=== PATIENT | female | born 1965 | race Caucasian/White ===

== ENCOUNTER 2017-12-15 14:21 | Emergency (ER) | payer BC, OTHER ==
[~2017-12-15] VITALS: Ht 157.5 cm; Wt 72.9 kg
[2017-12-15 14:40] VITALS: TEMP 36.8
[2017-12-15 14:45] VITALS: O2SAT 98
[2017-12-15] MEDS ORDERED: OPTIRAY 320 IV PRN (15:00)
[2017-12-15 15:05] VITALS: Ht 157.5 cm; Wt 72.9 kg
--- NOTE | 2017-12-15 15:07 | EMERGENCY ROOM VISIT NOTE ---
History Report prepared by Lakeisha: Neva Smyht Under the Supervision of: Amirah DeanO. First contact with patient: 14:32 Chief Complaint: HEADACHE Stated Complaint: HEADACHE/HYPERTENSION History of Present Illness The patient is a 52 year old female who presents to the Emergency Room with complaints of a resolved visual change which occurred earlier today. She reports that this morning when she woke up, she was unable to see out of her left eye for about 1 minute. The patient states a history of migraines, noting that she has had one for the past 3 weeks. She notes that she has been taking Tylenol, which helps reduce her symptoms but does not make them go away completely. The patient denies having numbness or weakness in her arms or legs, fevers, chills, problems moving her face, or any other symptoms. She reports that she has been taking medication for menopause, noting that her last normal menstrual period was about one month ago. The patient states a history of endometriosis and cervical cancer. Source of History: patient Onset: today Position: eye (left) Quality: other (visual change) Timing: resolved Associated Symptoms: + headache, No fevers, No chills, No weakness, No numbness Note: Patient denies problems moving her face. Review of Systems See HPI for pertinent positives & negatives. A total of 10 systems reviewed and were otherwise negative. Past Medical & Surgical Surgical Problems: (1) Cervical cancer (2) Endometriosis Family History Patient reports no known family medical history. Patient did not report any pertinent family history. Social History Smoking Status: Current Some Day Smoker Smokeless Tobacco Use: No Alcohol Use: occasionally Drug Use: none Housing Status: lives with family Current/Historical Medications Scheduled Amlodipine Besylate (Norvasc), 1 TAB PO DAILY Black Cohosh-Soy Isoflavones-M (Estroven Multi-Symptom Me), 1 CAP PO DAILY Allergies Coded Allergies: No Known Allergies (Unverified , 12/15/17) Physical Exam Vital Signs Date Time Temp Pulse Resp B/P (MAP) Pulse Ox O2 Delivery O2 Flow Rate FiO2 12/15/17 18:51 69 18 167/94 98 12/15/17 18:34 75 12/15/17 18:32 77 16 167/94 96 Room Air 12/15/17 17:41 69 15 165/94 98 Room Air 12/15/17 16:51 73 18 186/103 97 Room Air 12/15/17 16:09 77 20 193/100 97 Room Air 12/15/17 15:05 74 22 181/96 97 Room Air 12/15/17 14:45 98 Room Air 12/15/17 14:45 98 Room Air 12/15/17 14:40 36.8 72 22 204/97 97 Room Air 12/15/17 14:34 69 Physical Exam GENERAL: Patient is awake, alert, and in no acute distress. Patient is resting comfortably and showing no signs of anxiety EYES: The conjunctivae are clear. The pupils are round and reactive. EARS, NOSE, MOUTH AND THROAT: The nose is without any evidence of any deformity. Mucous membranes are moist tongue is midline NECK: The neck is nontender and supple. RESPIRATORY: Normal respiratory effort is noted there is no evidence of wheezing rhonchi or rales CARDIOVASCULAR: Regular rate and rhythm noted there no murmurs rubs or gallops normal S1 normal S2 GASTROINTESTINAL: The abdomen is soft. Bowel sounds are present in all quadrants. Abdomen is nontender PELVIS: The Pelvis is stable. No tenderness to palpation is noted. BACK: No midline tenderness or or step-off noted range of motion in flexion extension as well as rotation no signs of muscle spasm noted MUSCULOSKELETAL/EXTREMITIES: There is no evidence of gross deformity full range of motion is noted in the hips and shoulders SKIN: There is no obvious evidence of any rash. There are no petechiae, pallor or cyanosis noted. NEUROLOGIC: Patient is awake alert and oriented x3 strength is symmetric patellar reflexes are 2+ bilaterally Medical Decision & Procedures ER Provider Diagnostic Interpretation: Radiology results as stated below per my review and radiologist interpretation: ANGIOGRAPHY HEAD COMBO HISTORY: Vision loss. Headache TECHNIQUE: Multiaxial CT images of the head were performed both before and after the intravenous administration of contrast to evaluate the major cerebral vessels. Maximum intensity projection images were also obtained. A dose lowering technique was utilized adhering to the principles of ALARA. COMPARISON: None. FINDINGS: There is no mass, hematoma, midline shift, or acute infarct. Visualized intracranial internal carotid arteries, distal vertebral arteries, and basilar artery are widely patent. There is no significant stenosis, occlusion, or aneurysm seen within the bilateral ACAs, MCAs, or carbon brushes assembler. IMPRESSION: No significant stenosis, occlusion, or aneurysm within the [place] [facility] [place]. Negative CT of the brain The above report was generated using voice recognition software. It may contain grammatical, syntax or spelling errors. Electronically signed by: Guy López M.D. 12/15/2017 4:11 PM Dictated Date/Time: 12/15/2017 4:09 PM CHEST ONE VIEW PORTABLE CLINICAL HISTORY: 52 years-old Female presenting with EVALUATE ALTERED MENTAL STATUS/WEAKNESS. TECHNIQUE: Portable upright AP view of the chest was obtained. COMPARISON: None. FINDINGS: Cardiac silhouette is top normal in size. No focal opacity. No large effusion or pneumothorax. Osseous structures normal. Upper abdomen normal. IMPRESSION: 1. No acute cardiopulmonary disease. Electronically signed by: Narinder Reynoso M.D. 12/15/2017 3:25 PM Dictated Date/Time: 12/15/2017 3:24 PM Laboratory Results 12/15/17 15:20 Red Blood Count 4.33, Mean Corpuscular Volume 93.5, Mean Corpuscular Hemoglobin 31.6, Mean Corpuscular Hemoglobin Concent 33.8, Mean Platelet Volume 12.5, Neutrophils (%) (Auto) 63.6, Lymphocytes (%) (Auto) 26.2, Monocytes (%) (Auto) 7.5, Eosinophils (%) (Auto) 1.9, Basophils (%) (Auto) 0.6, Neutrophils # (Auto) 3.33, Lymphocytes # (Auto) 1.37, Monocytes # (Auto) 0.39, Eosinophils # (Auto) 0.10, Basophils # (Auto) 0.03 12/15/17 15:20 Test 12/15/17 14:30 12/15/17 15:20 12/15/17 15:34 Urine Color YELLOW Urine Appearance CLEAR (CLEAR) Urine pH 6.0 (4.5-7.5) Urine Specific [place] 1.009 (1.000-1.030) Urine Protein NEG (NEG) Urine Glucose (UA) NEG (NEG) Urine Ketones NEG (NEG) Urine Occult Blood 1+ (NEG) Urine Nitrite NEG (NEG) Urine Bilirubin NEG (NEG) Urine Urobilinogen NEG (NEG) Urine Leukocyte Esterase SMALL (NEG) Urine WBC (Auto) 5-10 /hpf (0-5) Urine RBC (Auto) 0-4 /hpf (0-4) Urine Hyaline Casts (Auto) 1-5 /lpf (0-5) Urine Epithelial Cells (Auto) >30 /lpf (0-5) Urine Bacteria (Auto) NEG (NEG) White Blood Count 5.23 K/uL (4.8-10.8) Red Blood Count 4.33 M/uL (4.2-5.4) Hemoglobin 13.7 g/dL (12.0-16.0) Hematocrit 40.5 % (37-47) Mean Corpuscular Volume 93.5 fL (80-100) Mean Corpuscular Hemoglobin 31.6 pg (25-34) Mean Corpuscular Hemoglobin Concent 33.8 g/dl (32-36) Platelet Count 185 K/uL (130-400) Mean Platelet Volume 12.5 fL (7.4-10.4) Neutrophils (%) (Auto) 63.6 % Lymphocytes (%) (Auto) 26.2 % Monocytes (%) (Auto) 7.5 % Eosinophils (%) (Auto) 1.9 % Basophils (%) (Auto) 0.6 % Neutrophils # (Auto) 3.33 K/uL (1.4-6.5) Lymphocytes # (Auto) 1.37 K/uL (1.2-3.4) Monocytes # (Auto) 0.39 K/uL (0.11-0.59) Eosinophils # (Auto) 0.10 K/uL (0-0.5) Basophils # (Auto) 0.03 K/uL (0-0.2) RDW Standard Deviation 44.7 fL (36.4-46.3) RDW Coefficient of Variation 13.0 % (11.5-14.5) Immature Granulocyte % (Auto) 0.2 % Immature Granulocyte # (Auto) 0.01 K/uL (0.00-0.02) Prothrombin Time 9.8 SECONDS (9.0-12.0) Prothromb Time International Ratio 0.9 (0.9-1.1) Activated Partial Thromboplast Time 24.7 SECONDS (21.0-31.0) Partial Thromboplastin Ratio 1.0 Est Creatinine Clear Calc Drug Dose 86.7 ml/min Estimated GFR () 113.5 Estimated GFR (Non- 97.9 BUN/Creatinine Ratio 17.9 (10-20) Calcium Level 8.6 mg/dl (8.5-10.1) Magnesium Level 2.4 mg/dl (1.8-2.4) Total Bilirubin 0.5 mg/dl (0.2-1) Direct Bilirubin 0.1 mg/dl (0-0.2) Aspartate Amino Transf (AST/SGOT) 18 U/L (15-37) Alanine Aminotransferase (ALT/SGPT) 22 U/L (12-78) Alkaline Phosphatase 75 U/L (45-117) Troponin I < 0.015 ng/ml (0-0.045) Total Protein 7.4 gm/dl (6.4-8.2) Albumin 3.9 gm/dl (3.4-5.0) Thyroid Stimulating Hormone (TSH) 0.756 uIu/ml (0.300-4.500) Human Chorionic Gonadotropin, Qual NEG (NEG) Bedside Hemoglobin 13.3 g/dl (12.0-16.0) Bedside Hematocrit 39 % (37-47) Bedside Sodium 142 mEq/L (135-144) Bedside Potassium 3.8 mEq/L (3.3-5.0) Bedside Chloride 105 mEq/L (101-112) Bedside Total CO2 26 mEq/l (24-31) Anion Gap 15.0 mmol/L (16-25) Bedside Blood Urea Nitrogen 14 mg/dl (7-18) Bedside Creatinine 0.7 mg/dl (0.6-1.3) Bedside Glucose (other) 102 mg/dl (70-99) Bedside Ionized Calcium (Adria) 1.13 mmol/l (1.12-1.32) Laboratory results per my review. Medications Administered Medications (Trade) Dose Ordered Sig/Awais Route Start Time Stop Time Status Last Admin Dose Admin Amlodipine Besylate (Norvasc Tab) 5 mg NOW ONCE PO 12/15/17 16:30 12/15/17 16:31 DC 12/15/17 16:50 5 MG Ketorolac Tromethamine (Toradol Inj) 30 mg NOW STAT IV 12/15/17 16:27 12/15/17 16:28 DC 12/15/17 16:50 30 MG ECG Per My Interpretation Indication: other (hypertension) Rate (beats per minute): 68 Findings: no ectopy, other (LVH noted suggested by voltage criteria) ED Course 1438: The patient was evaluated in room B3. A complete history and physical examination were performed. 1500: Ordered Ioversol 100ml IV. 1619: I reevaluated the patient, who has family at bedside. I updated her on test findings, including her elevated blood pressure. Discussed the treatment plan and she verbalized complete understanding and agreement. 1627: Ordered Toradol Inj 30mg IV. 1630: Ordered Norvasc Tab 5mg PO. 183: Upon reevaluation, the patient is resting comfortably. I discussed the results and treatment plan with her. She verbalized agreement of the treatment plan. The patient was discharged home. Medical Decision Prior records/ancillary studies reviewed. Triage Nursing notes reviewed. The patient's history was concerning for headache. Differential diagnosis: Etiologies such as migraine headache, meningitis, sinusitis, CO exposure, ICH, SAH, infection, tumor, headache, sinus thrombosis, arterial dissection, as well as others were entertained. The patient is a 52-year-old female who presented to the emergency department for headache. The patient did not have meningismus or fever. She had no focal neurologic deficit. The patient was also found to have elevated blood pressure. The patient was treated with Norvasc in the emergency department. She was reevaluated multiple times. She was also treated with Toradol. On subsequent reevaluation she was significantly improved. At this time I do feel that she may have an underlying hypertension problem. For this reason I encouraged her to continue all medications as prescribed. She was encouraged to try to stop smoking and follow-up with her family doctor soon as possible. Otherwise she was encouraged to rest and avoid any strenuous activity and also return to the emergency department immediately if symptoms change worsen or the need arises. Medication Reconcilliation Current Medication List: was personally reviewed by me Blood Pressure Screening Patient's blood pressure: Elevated blood pressure Blood pressure disposition: Referred to PCP Impression Primary Impression: HTN (hypertension) Additional Impression: Headache Scribe Attestation The scribe's documentation has been prepared under my direction and personally reviewed by me in its entirety. I confirm that the note above accurately reflects all work, treatment, procedures, and medical decision making performed by me. Departure Information Dispostion Home / Self-Care Prescriptions Amlodipine Besylate (NORVASC) 5 Mg Tab 1 TAB PO DAILY for 30 Days, #30 TAB 5 Refills Prov: Joselito Cervantes DO 12/15/17 Forms HOME CARE DOCUMENTATION FORM, IMPORTANT VISIT INFORMATION Patient Instructions My [facility] Additional Instructions Continue all medications as prescribed. Rest and avoid any strenuous activity. Try to stop smoking. Follow-up with your family doctor this week for further evaluation. Continue using Motrin and Tylenol as directed for pain. Problem Qualifiers Primary Impression: HTN (hypertension) Hypertension type: unspecified Qualified Codes: I10 - Essential (primary) hypertension Additional Impression: Headache Headache type: unspecified Headache chronicity pattern: acute headache Intractability: not intractable Qualified Codes: R51 - Headache
--- NOTE | 2017-12-15 15:26 | DIAGNOSTIC IMAGING REPORT ---
CHEST ONE VIEW PORTABLE CLINICAL HISTORY: 52 years-old Female presenting with EVALUATE ALTERED MENTAL STATUS/WEAKNESS. TECHNIQUE: Portable upright AP view of the chest was obtained. COMPARISON: None. FINDINGS: Cardiac silhouette is top normal in size. No focal opacity. No large effusion or pneumothorax. Osseous structures normal. Upper abdomen normal. IMPRESSION: 1. No acute cardiopulmonary disease. Electronically signed by: Narinder Reynoso M.D. 12/15/2017 3:25 PM Dictated Date/Time: 12/15/2017 3:24 PM
[2017-12-15 15:33] LABS: BASO % 0.6 %; BASO ABS # 0.03 K/uL (0-0.2); EOS % 1.9 %; HEMATOCRIT 40.5 % (37-47); HEMOGLOBIN 13.7 g/dL (12.0-16.0); IG# 0.01 K/uL (0.00-0.02); LYMPH % 26.2 %; LYMPH ABS # 1.37 K/uL (1.2-3.4); MEAN CELL VOLUME 93.5 fL (80-100); MEAN CORPUSCULAR HEMOGLOBIN 31.6 pg (25-34); MEAN CORPUSCULAR HGB CONC 33.8 g/dl (32-36); MEAN PLATELET VOLUME 12.5 fL (7.4-10.4); MONO % 7.5 %; MONO ABS # 0.39 K/uL (0.11-0.59); NEUT % 63.6 %; NEUT ABS # 3.33 K/uL (1.4-6.5); PLATELET COUNT 185 K/uL (130-400); RED CELL DISTRIBUTION WIDTH SD 44.7 fL (36.4-46.3); WHITE BLOOD COUNT 5.23 K/uL (4.8-10.8)
[2017-12-15 15:40] LABS: INR 0.9 (0.9-1.1); PTT PATIENT 24.7 SECONDS (21.0-31.0)
[2017-12-15 15:51] LABS: ALBUMIN 3.9 gm/dl (3.4-5.0); ALT/SGPT 22 U/L (12-78); AST/SGOT 18 U/L (15-37); BLOOD UREA NITROGEN 13 mg/dl (7-18); CALCIUM 8.6 mg/dl (8.5-10.1); CARBON DIOXIDE 25 mmol/L (21-32); CREATININE 0.71 mg/dl (0.60-1.20); GLUCOSE 98 mg/dl (70-99); POTASSIUM 3.7 mmol/L (3.5-5.1); SODIUM 140 mmol/L (136-145)
[2017-12-15 15:56] LABS: ISTAT CREATININE 0.7 mg/dl (0.6-1.3); ISTAT IONIZED CALCIUM 1.13 mmol/l (1.12-1.32); ISTAT POTASSIUM 3.8 mEq/L (3.3-5.0)
[2017-12-15 16:02] LABS: ALKALINE PHOSPHATASE 75 U/L (45-117); TOTAL PROTEIN 7.4 gm/dl (6.4-8.2)
[2017-12-15] MEDS ORDERED: BLAC1CAP2 PO (16:04)
--- NOTE | 2017-12-15 16:13 | DIAGNOSTIC IMAGING REPORT ---
ANGIOGRAPHY HEAD COMBO HISTORY: Vision loss. Headache TECHNIQUE: Multiaxial CT images of the head were performed both before and after the intravenous administration of contrast to evaluate the major cerebral vessels. Maximum intensity projection images were also obtained. A dose lowering technique was utilized adhering to the principles of ALARA. COMPARISON: None. FINDINGS: There is no mass, hematoma, midline shift, or acute infarct. Visualized intracranial internal carotid arteries, distal vertebral arteries, and basilar artery are widely patent. There is no significant stenosis, occlusion, or aneurysm seen within the bilateral ACAs, MCAs, or crane assembler. IMPRESSION: No significant stenosis, occlusion, or aneurysm within the [place]. Negative CT of the brain The above report was generated using voice recognition software. It may contain grammatical, syntax or spelling errors. Electronically signed by: Guy López M.D. 12/15/2017 4:11 PM Dictated Date/Time: 12/15/2017 4:09 PM
[2017-12-15] MEDS ORDERED: KETOROLAC TROMETHAMINE 30 MG/ML VIAL IV STA (16:27)
[2017-12-15] MEDS ORDERED: AMLODIPINE BESYLATE 5 MG TAB PO ONE (16:30)
[2017-12-15] MEDS ORDERED: AMLO5TAB2 PO (18:34)
[2017-12-15 18:51] VITALS: BP 167/94; PULSE 69; O2SAT 98
== END 2017-12-15 18:53 | disposition home or self-care (01) ==
LOC: EDBD 14:21 → C.EDB 14:23
DX: I10 Essential (primary) hypertension (principal); R51 Headache; Z85.41 Personal history of malignant neoplasm of cervix uteri; F17.210 Nicotine dependence, cigarettes, uncomplicated; Z79.899 Other long term (current) drug therapy